=== PATIENT | male | born 1985 | race Caucasian/White ===

== ENCOUNTER 2016-09-26 03:00 | Emergency (ER) | payer BC ==
[~2016-09-26] VITALS: Ht 175.3 cm; Wt 70.3 kg
[2016-09-26 05:12] VITALS: BP 125/71
== END 2016-09-26 05:12 | disposition home or self-care (01) ==
LOC: ED 03:00 → EDBD 03:00 → ED 05:12
DX: S01.01XA Laceration without foreign body of scalp, initial encounter (principal); X58.XXXA Exposure to other specified factors, initial encounter; Y93.89 Activity, other specified; Y99.8 Other external cause status; Y92.89 Other specified places as the place of occurrence of the external cause
CPT/HCPCS: 90715; J2001